=== PATIENT | female | born 1995 | race Caucasian/White ===

== ENCOUNTER 2018-10-29 18:00 | Emergency (ER) | payer OTHER ==
[~2018-10-29] VITALS: Ht 157.5 cm; Wt 72.6 kg
[~2018-10-29 18:00] MED LIST: ESCI10TA10 PO; NAPR-636 PO
[2018-10-29 18:30] VITALS: BP 123/87
--- NOTE | 2018-10-29 18:44 | ER.PDOC ---
General Chief Complaint: Requesting Medical Care Stated Complaint: R HAND INJURY Time seen by MD: 19:00 Source: patient Exam Limitations: no limitations History of Present Illness Occurred: just prior to arrival Where: home Severity: moderate Context: direct blow, closed fist injury Location of Injury: (R) hand Modifying Factors: pain on movement Allergies: Coded Allergies: Penicillins (Verified Allergy, Severe, Hives, 05/13/17) Home Meds Discontinued Reported Medications Naproxen (NAPROXEN) 500 Mg Tablet, 500 MG PO BID, TABLET 05/13/17 Escitalopram Oxalate (LEXAPRO) 10 Mg Tablet, 10 MG PO DAILY, TABLET 05/13/17 Past Medical History Surgical History: no surgical history Social History Drug Use: none Reviewed Nursing Reviewed: Vital Signs, Abn. Noted Review of Systems All Other Systems: Reviewed and Negative Physical Exam General Appearance: Alert, No Apparent Distress Hand: see diagram, tenderness, limited ROM Wrist: nml inspection, non-tender, nml ROM 1 - edema, tenderness Neuro: sensation nml, motor nml Vascular: no vascular compromise Tendons: tendon function nml Forearm/Elbow/Arm: uninjured above wrist Skin: warm/dry Head/ENT: nml inspection, pharynx nml Neck/Back: nml inspection, non-tender Resp/CVS: no resp distress, lungs clear, heart sounds nml, reg. rate & rhythm Abdomen: non-tender, no organomegaly Splinting Splinting : Pre-Made Type: acewrap Departure Time of Disposition: 19:00 Disposition: 01 HOME, SELF-CARE Impression: Primary Impression: Contusion, hand Condition: Stable Referrals: IRENE STINSON MD (PCP) PRIMARY CARE PROVIDER Duration or Time Spent with Pa: 1 hr ANAHI SANZ MD Oct 29, 2018 18:44
--- NOTE | 2018-10-29 19:05 | DIREP ---
PROCEDURE:XRAY HAND MIN 3 VW-RT COMPARISON:[facility], CR, XRAY HAND MIN 3 VW-RT, 05/13/2017, 02:10 AM. INDICATIONS:closed fist injury FINDINGS: BONES:Normal. JOINTS:Normal. SOFT TISSUES:Normal. OTHER:No additional findings. CONCLUSION:No acute bony findings. Dictated by: Baltazar Atwood MD on 10/29/2018 at 07:03 PM
[2018-10-29 19:34] VITALS: BP 123/87
== END 2018-10-29 19:25 | disposition home or self-care (01) ==
LOC: ER 18:00
DX: S60.221A Contusion of right hand, initial encounter (principal); Z79.899 Other long term (current) drug therapy; Z88.0 Allergy status to penicillin; Y04.0XXA Assault by unarmed brawl or fight, initial encounter; Y93.89 Activity, other specified; Y92.098 Other place in other non-institutional residence as the place of occurrence of the external cause; Y99.8 Other external cause status
CPT/HCPCS: 99283; 73130-RT

== ENCOUNTER 2021-03-19 10:59 | Emergency (ER) | payer BC, OTHER ==
[~2021-03-19] VITALS: Ht 160 cm; Wt 81.6 kg
[2021-03-19 11:12] VITALS: BP 136/107
[2021-03-19] MEDS ORDERED: LIDOCAINE 1% VIAL ONE (11:28)
--- NOTE | 2021-03-19 11:40 | ER.PDOC ---
General Chief Complaint: Extremities Stated Complaint: FINGER INJURY Time seen by MD: 11:37 Source: patient History of Present Illness Initial Comments 25-year-old transgender male presents with injury to the right index finger. Patient is right-handed. He states that just prior to arrival today he cut his hand on top of a chain link fence. Bleeding controlled. Tetanus status up-to-date. Injury is to the middle phalanx of the right index finger. No tendon injury. Pain is moderate without radiation. Worse with movement and better with rest. Constant since onset. Sharp Allergies: Coded Allergies: Penicillins (Verified Allergy, Severe, Hives, 05/13/17) Past Medical History Medical History: no pertinent history Surgical History: no surgical history Social History Alcohol Use: none Drug Use: none Review of Systems Constitutional: denies chills, denies diaphoresis, denies fever EENTM: denies eye pain, denies blurred vision, denies tearing Respiratory: denies cough, denies shortness of breath Cardiovascular: denies chest pain, denies edema, denies palpitations Gastrointestinal: denies constipation Genitourinary: denies dysuria, denies frequency Musculoskeletal: denies joint pain, denies joint swelling Skin: other (laceratoin) Psychiatric/Neurological: denies anxiety, denies depressed Physical Exam General Appearance: Alert, No Apparent Distress Wrist: nml inspection Neuro: sensation nml, motor nml Vascular: no vascular compromise Tendons: tendon function nml Forearm/Elbow/Arm: uninjured above wrist Skin: warm/dry Comments 1 cm laceration volar aspect right middle phalanx transverse ED LACERATION WOUND REPAIR # of Wounds/Lacerations Presen: 1 Wound Location & Length (Requi: 1.5 cm right index finger volar middle phalynx Wound Length (cm): 1 Distal NVT: neuro intact, vasc intact Anesthesia type: local Anesthesia: 1% Lidocaine Volume Anesthetic (ccs): 3 Wound's Depth, Shape: into muscle, flap Wound Explored: clean Tendon Intact: Yes Wound Repaired With: sutures Suture Size/Type: 4:0, prolene Suture Style: simple Number of Sutures: 4 Layer Closure?: No Results/Orders Results/Orders Orders - KACIE OLIVEIRA MD Lidocaine Hcl (Lidocaine 1% Vial) (03/19/21 11:28) Vital Signs Date Time Temp Pulse Resp B/P (MAP) Pulse Ox O2 Delivery O2 Flow Rate FiO2 03/19/21 11:12 98.7 89 16 03/19/21 11:12 98.7 89 20 99 03/19/21 11:12 98.7 89 16 136/107 (117) 99 Progress Progress 25-year-old transgender male presents with a finger laceration. It was repaired . After anesthetic was applied high-volume tap water for greater than 2 minutes ran at the bedside sink. Clean. See procedure note. Tetanus up-to-date. Strict follow-up and return precautions were given including suture care and removal timeline. Splint was a placed at the patient preference. Will discharge ER DEPART Departure Time of Disposition: 12:27 Disposition: 01 HOME / SELF CARE / HOMELESS Impression: Primary Impression: Finger laceration Condition: Improved Patient Instructions: Fingertip Laceration Referrals: [facility] (PCP) PRIMARY CARE PROVIDER Additional Instructions: Follow up in 7-10 days for suture removal Duration or Time Spent with Pa: 30 Problem Qualifiers Primary Impression: Finger laceration Encounter type: initial encounter Finger: index finger Damage to nail status: without damage Foreign body presence: with foreign body Laterality: right Qualified Codes: S61.220A - Laceration with foreign body of right index finger without damage to nail, initial encounter KACIE OLIVEIRA MD Mar 19, 2021 11:40
[2021-03-19 12:30] VITALS: BP 136/107
== END 2021-03-19 12:30 | disposition home or self-care (01) ==
LOC: ER 10:59
DX: S61.220A Laceration with foreign body of right index finger without damage to nail, initial encounter (principal); Z88.0 Allergy status to penicillin; W26.8XXA Contact with other sharp object(s), not elsewhere classified, initial encounter; Y93.89 Activity, other specified; Y92.89 Other specified places as the place of occurrence of the external cause; Y99.8 Other external cause status
CPT/HCPCS: 12001; 99282; J2001